=== PATIENT | female | born 1985 | race Two or more races ===

== ENCOUNTER 2021-03-12 23:29 | Emergency (ER) | payer SELFPAY ==
[~2021-03-12] VITALS: Ht 152.4 cm; Wt 90.9 kg
[2021-03-13 01:30] LABS: BILIRUBIN,URINE SMALL (NEG); CLARITY,URINE CLEAR; COLOR,URINE YELLOW; NITRITE,URINE NEGATIVE (NEG); PH,URINE 5.5 (<5.0-8.0); PROTEIN,URINE NEGATIVE (NEG-TRACE); UROBILINOGEN,URINE 0.2 mg/dL (0.2 mg/dL)
[2021-03-13 01:39] LABS: BACTERIA,URINE FEW /HPF (0-FEW); RBC,URINE 0 /HPF (0-2)
[2021-03-13 02:21] LABS: U PREG PATIENT NEGATIVE (NEG)
[2021-03-13] MEDS ORDERED: FLUCONAZOLE 100 MG TABLET. PO ONE (03:00)
--- NOTE | 2021-03-13 03:03 | RAD ---
Examination: CT of the abdomen pelvis without contrast HISTORY: History of abdominal pain, groin pain COMPARISON: 01/03/2020 TECHNIQUE: Axial CT images of the abdomen pelvis were performed without contrast. Coronal and sagitta l reformats are performed Exposure: One or more of the following individualized dose reduction techniques were utilized for thi s examination: 1. Automated exposure control 2. Adjustment of the mA and/or kV according to patient size 3. Use of iterative reconstruction technique FINDINGS: The bibasilar lungs are clear. No evidence of free air identified in the abdomen. The evaluation of the solid organs is limited due to lack of IV contrast. The evaluation of bowel is limited due to lack of oral contrast. The visualized noncontrasted liver, spleen, adrenals grossly ap pears unremarkable. Gallbladder is mildly distended. The stomach is mildly distended. The visualized pancreas grossly halley ears unremarkable. The small bowel is nondilated. There is a small spigelian hernia identified in th e right lower quadrant of the abdominal wall, best visualized on series 3 image 16 and containing loo p of small bowel without obstruction. Urinary bladder is mildly distended. Feces and gas noted in the colon. The appendix is normal. No evidence of intrarenal collecting system calculi or hydronephrosis. No catracho dence of lytic bony destructive lesion. IMPRESSION: 1.Small Spigelian hernia identified in the right lower quadrant of the abdominal wall, best visualize d on series 3 image 16 and containing loop of small bowel without obstruction. Electronically signed by: Tono Perera MD (03/13/2021 3:00 AM) [id number]
--- NOTE | 2021-03-13 03:09 | PHYS DOC ---
Past Medical History Past Medical History: No Pertinent History Past Surgical History: Smoking Status: Never Smoker Alcohol Use: None General Adult EDM: Chief Complaint: GROIN PAIN HPI: HPI: Patient is a 36 year old female who present to ER due to left groin pain off and on for 2 months. Patient said the pain was sharp and burning in nature. Patient denies any frequent urination or any burning with urination. Patient denies any nausea vomiting patient denies any cough or fever. Review of Systems: Review of Systems: Constitutional: Denies fever or chills. [] Eyes: Denies change in visual acuity. [] HENT: Denies nasal congestion or sore throat. [] Respiratory: Denies cough or shortness of breath. [] Cardiovascular: Denies chest pain or edema. [] GI: Denies abdominal pain, nausea, vomiting, bloody stools or diarrhea. Positive for left groin pain. : Denies dysuria. [] Musculoskeletal: Denies back pain or joint pain. [] Integument: Denies rash. [] Neurologic: Denies headache, focal weakness or sensory changes. [] Endocrine: Denies polyuria or polydipsia. [] Lymphatic: Denies swollen glands. [] Psychiatric: Denies depression or anxiety. [] Heart Score: C/O Chest Pain: N/A Risk Factors: Risk Factors: DM, Current or recent (<one month) smoker, HTN, HLP, family history of CAD, obesity. Risk Scores: Score 0 - 3: 2.5% MACE over next 6 weeks - Discharge Home Score 4 - 6: 20.3% MACE over next 6 weeks - Admit for Clinical Observation Score 7 - 10: 72.7% MACE over next 6 weeks - Early Invasive Strategies Current Medications: Current Medications Medications (Trade) Dose Ordered Sig/Du Start Time Stop Time Status Last Admin Dose Admin Fluconazole (Diflucan) 200 mg 1X ONCE 03/13/21 03:00 03/13/21 03:01 DC 03/13/21 02:49 200 MG Allergies: Allergies: Allergies Coded Allergies Type Severity Reaction Last Updated Verified No Known Drug Allergies 03/13/21 No Physical Exam: PE: Constitutional: Well developed, well nourished, no acute distress, non-toxic appearance. [] HENT: Normocephalic, atraumatic, bilateral external ears normal, oropharynx moist, no oral exudates, nose normal. [] Eyes: PERRLA, EOMI, conjunctiva normal, no discharge. [] Neck: Normal range of motion, no tenderness, supple, no stridor. [] Cardiovascular:Heart rate regular rhythm, no murmur [] Lungs & Thorax: Bilateral breath sounds clear to auscultation [] Abdomen: Bowel sounds normal, soft, no tenderness, no masses, no pulsatile masses. [] Skin: Warm, dry, no erythema, no rash. [] Back: No tenderness, no CVA tenderness. [] Extremities: No tenderness, no cyanosis, no clubbing, ROM intact, no edema. [] Neurologic: Alert and oriented X 3, normal motor function, normal sensory function, no focal deficits noted. [] Psychologic: Affect normal, judgement normal, mood normal. [] Current Patient Data: Labs: Laboratory Tests Test 03/13/21 01:18 Urine Collection Type Unknown Urine Color Yellow Urine Clarity Clear Urine pH 5.5 (<5.0-8.0) Urine Specific [place] >=1.030 (1.000-1.030) Urine Protein Negative mg/dL (NEG-TRACE) Urine Glucose (UA) Negative mg/dL (NEG) Urine Ketones (Stick) Negative mg/dL (NEG) Urine Blood Negative (NEG) Urine Nitrite Negative (NEG) Urine Bilirubin Small (NEG) Urine Urobilinogen Dipstick 0.2 mg/dL (0.2 mg/dL) Urine Leukocyte Esterase Negative (NEG) Urine RBC 0 /HPF (0-2) Urine WBC 1-4 /HPF (0-4) Urine Squamous Epithelial Cells Many /LPF Urine Bacteria Few /HPF (0-FEW) Urine Mucus Marked /LPF Urine Test Negative (NEG) Vital Signs: Vital Signs Date Time Temp Pulse Resp B/P (MAP) Pulse Ox O2 Delivery O2 Flow Rate FiO2 03/13/21 01:52 97.9 60 18 131/93 (106) 99 Room Air 97.9 EKG: EKG: [] Radiology/Procedures: Radiology/Procedures: [][facility] [address] [place], [place] [id number] IMAGING REPORT Signed PATIENT: LENIN GAN AACCOUNT: [id number] : 1985 LOCATION: ER AGE: 36 SEX: F EXAM STATUS: REG ER ORD. PHYSICIAN: JUVENAL ZAMORA DO REASON: abdominal pain, groin pain PROCEDURE: CT ABDOMEN PELVIS WO CONTRAST Examination: CT of the abdomen pelvis without contrast HISTORY: History of abdominal pain, groin pain COMPARISON: 01/03/2020 TECHNIQUE: Axial CT images of the abdomen pelvis were performed without contrast. Coronal and sagittal reformats are performed Exposure: One or more of the following individualized dose reduction techniques were utilized for this examination: 1. Automated exposure control 2. Adjustment of the mA and/or kV according to patient size 3. Use of iterative reconstruction technique FINDINGS: The bibasilar lungs are clear. No evidence of free air identified in the abdomen. The evaluation of the solid organs is limited due to lack of IV contrast. The evaluation of bowel is limited due to lack of oral contrast. The visualized noncontrasted liver, spleen, adrenals grossly appears unremarkable. Gallbladder is mildly distended. The stomach is mildly distended. The visualized pancreas grossly appears unremarkable. The small bowel is nondilated. There is a small spigelian hernia identified in the right lower quadrant of the abdo tressa wall, best visualized on series 3 image 16 and containing loop of small bowel without obstruction. Urinary bladder is mildly distended. Feces and gas noted in the colon. The appendix is normal. No evidence of intrarenal collecting system calculi or hydronephrosis. No evidence of lytic bony destructive lesion. IMPRESSION: 1.Small Spigelian hernia identified in the right lower quadrant of the abdominal wall, best visualized on series 3 image 16 and containing loop of small bowel without obstruction. Electronically signed by: Tono Perera MD (03/13/2021 3:00 AM) [id number] DICTATED and SIGNED BY: TONO PERERA MD DATE: 03/13/21 [id number] Course & Med Decision Making: Course & Med Decision Making Pertinent Labs and Imaging studies reviewed. (See chart for details) Patient is a 36-year-old female who present to ER due to left leg pain. Her UA was normal. Patient had a CT scan of her abdomen pelvis without contrast shows some hernia on the right side of her lower abdominal area, it is probably incidental finding. Examination showed that she had a foul odor from the groin area, but there was no discharge, suspicious for YEAST INFECTION. Patient was given 1 dose of Diflucan p.o. in ER. Kasi Disclaimer: Kasi Disclaimer: This electronic medical record was generated, in whole or in part, using a voice recognition dictation system. Departure Departure Impression: Primary Impression: Hernia of abdominal wall Disposition: HOME / SELF CARE / HOMELESS Condition: STABLE Referrals: NO PCP (PCP) NARAYAN CHOWDHURY MD Patient Instructions: Hernia Additional Instructions: Thank you for visiting our Emergency Department. We appreciate you trusting us with your care. If any additional problems come up don't hesitate to return to visit us. Please follow up with your primary care provider so they can plan additional care if needed and know about the problem that you had. If symptoms worsen come back to the Emergency Department. Any concerning symptoms that start such as chest pain, shortness of air, weakness or numbness on one side of the body, running high fevers or any other concerning symptoms return to the ER. JUVENAL ZAMORA DO Mar 13, 2021 03:09
[2021-03-13 04:04] VITALS: BP 140/80
== END 2021-03-13 04:05 | disposition home or self-care (01) ==
LOC: ER 23:29
DX: K43.9 Ventral hernia without obstruction or gangrene (principal)
CPT/HCPCS: 74176; 81001; 81025; 99284-25